=== PATIENT | female | born 1960 | race Caucasian/White ===

== ENCOUNTER → 2023-01-01 | Day surgery (SDC) | payer BC, OTHER ==
[~2023-01-01] MED LIST: Iopamidol 612 MG/ML 100 ML Bottle IV SCH; Lactated Ringers 1,000 ML IV SCH; Midazolam 1 MG/ML 2 ML SDV ONE; Propofol 200 MG/20 ML SDV ONE; Sodium Chloride 0.9% 10 ML Syringe FLUSH ONE; Sodium Chloride 0.9% 50 ML IV ONE; fentaNYL 50 MCG/ML SDV ONE
== END ==
LOC: JP.SDS 06:54
PROVIDERS: ATTEND Student in an Organized Health Care Education/Training Program
DX: K57.30 Diverticulosis of large intestine without perforation or abscess without bleeding (principal); E66.9 Obesity, unspecified; Z68.35 Body mass index [BMI] 35.0-35.9, adult; Z88.2 Allergy status to sulfonamides; Z79.899 Other long term (current) drug therapy
CPT/HCPCS: 36415; 45380; 45385; 71260; 74177; 80053; 82378; 85025; J2250; J2704; J3010; J3490; J7120; Q9967; 88305; 88341; 88342

== ENCOUNTER 2023-01-19 11:45 | Inpatient (IN) | payer OTHER ==
[2023-01-22] MEDS ORDERED: Bupivacaine 0.5% 50 ML MDV ONE (07:12)
[2023-01-22] MEDS ORDERED: Lidocaine 1% with EPINEPHrine 1:100,000 50 ML MDV ONE (07:13)
[2023-01-22] MEDS ORDERED: Bupivacaine 0.5%/EPINEPHrine 1:200,000 50 ML MDV ONE (07:13)
[2023-01-22] MEDS ORDERED: fentaNYL 250 MCG/5 ML SDV ONE ×3 (07:23→16:48)
[2023-01-22] MEDS ORDERED: Propofol 200 MG/20 ML SDV ONE (07:24)
[2023-01-22] MEDS ORDERED: Glycopyrrolate 0.2 MG/ML 5 ML MDV ONE (07:24)
[2023-01-22] MEDS ORDERED: Rocuronium 50 MG/5 ML Vial ONE ×4 (07:24→14:28)
[2023-01-22] MEDS ORDERED: Ondansetron 4 MG/2 ML SDV ONE (07:24)
[2023-01-22] MEDS ORDERED: Neostigmine Methylsulfate 1 MG/ML 5 ML Syringe ONE (07:24)
[2023-01-22] MEDS ORDERED: Succinylcholine 200 MG/10 ML MDV ONE (07:24)
[2023-01-22] MEDS ORDERED: Dexamethasone 4 MG/ML SDV ONE (07:24)
[2023-01-22] MEDS ORDERED: Scopolamine 1.5 MG Transdermal Patch TOP SCH (07:30)
[2023-01-22] MEDS ORDERED: Acetaminophen 500 MG Tab PO ONE (07:30)
[2023-01-22] MEDS ORDERED: Enoxaparin 40 MG/0.4 ML Syringe SUBCUT ONE (07:30)
[2023-01-22] MEDS: Lactated Ringers 1,000 ML IV SCH (08:19)
[2023-01-22] MEDS ORDERED: Ertapenem 1 GM in Sodium Chloride 0.9% 50 ML IV ONE (08:30)
[2023-01-22] MEDS ORDERED: Lactated Ringers 1,000 ML ONE ×2 (10:43→14:18)
[2023-01-22] MEDS ORDERED: ePHEDrine 50 MG/ML SDV ONE (10:43)
[2023-01-22] MEDS ORDERED: fentaNYL 100 MCG/2 ML SDV ONE ×2 (13:06→14:43)
[2023-01-22] MEDS ORDERED: Glucagon,Human Recombinant 1 MG Vial ONE (15:27)
[2023-01-22] MEDS ORDERED: Meropenem 500 MG SDV ONE (16:46)
[2023-01-22] MEDS ORDERED: diphenhydrAMINE 50 MG/ML SDV IVPUSH PRN (17:01)
[2023-01-22] MEDS ORDERED: diphenhydrAMINE 25 MG Cap PO PRN (17:01)
[2023-01-22] MEDS ORDERED: Naloxone 0.4 MG/ML SDV IVPUSH PRN (17:01)
[2023-01-22] MEDS ORDERED: Ondansetron 4 MG/2 ML SDV IVPUSH PRN (17:01)
[2023-01-22] MEDS: HYDROmorphone/Normal Saline 6 MG/30 ML PCA Vial IV PRN (17:10)
[2023-01-22] MEDS ORDERED: Naloxone 0.4 MG/ML SDV IV PRN (18:00)
[2023-01-22 18:37] LABS: ESTIMATED GFR 73 mL/min (>60)
[2023-01-22] MEDS: Ondansetron 4 MG/2 ML SDV IVPUSH PRN (19:16)
[2023-01-22] MEDS: Acetaminophen 1,000 MG in Premix Bag 1 BAG IV SCH (19:32)
[2023-01-22] MEDS ORDERED: Magnesium Sulfate/Water 2 GM in Premix Bag 1 BAG IV ONE (20:00)
[2023-01-22] MEDS ORDERED: Magnesium Sulfate/Water 50 ML ONE (21:03)
[2023-01-22] MEDS ORDERED: Promethazine 25 MG in Sodium Chloride 0.9% 50 ML IV PRN (21:18)
[2023-01-22] MEDS ORDERED: Promethazine 25 MG/ML SDV ONE (21:33)
[2023-01-23] MEDS: Lactated Ringers 1,000 ML IV SCH ×4 (00:20→19:49)
[2023-01-23] MEDS: Acetaminophen 1,000 MG in Premix Bag 1 BAG IV SCH ×3 (02:02→17:20)
[2023-01-23] MEDS ORDERED: Lactated Ringers 1,000 ML IV ONE (14:45)
[2023-01-23 17:23] LABS: ESTIMATED GFR 43 mL/min (>60)
[2023-01-23] MEDS ORDERED: Lactated Ringers 500 ML IV ONE (18:41)
[2023-01-24] MEDS: Lactated Ringers 1,000 ML IV SCH ×3 (03:52→18:56)
[2023-01-24] MEDS ORDERED: Lidocaine 1% with EPINEPHrine 1:100,000 50 ML MDV ONE (06:58)
[2023-01-24] MEDS ORDERED: Bupivacaine 0.5% 50 ML MDV ONE (06:58)
[2023-01-24] MEDS ORDERED: Sodium Phosphate 15 mMole/5 ML SDV IV ONE (07:18)
[2023-01-24] MEDS ORDERED: Sodium Phosphate 30 MMOLE in Sodium Chloride 0.9% 250 ML IV ONE (10:00)
[2023-01-24] MEDS: VERIFY SCOP PATCH TOP SCH (10:44)
[2023-01-24] MEDS: HYDROmorphone/Normal Saline 6 MG/30 ML PCA Vial IV PRN (14:05)
[2023-01-24] MEDS: Dextrose 5%-Lactated Ringers 1,000 ML IV SCH (21:47)
[2023-01-25] MEDS: Dextrose 5%-Lactated Ringers 1,000 ML IV SCH ×2 (05:52→16:23)
[2023-01-25] MEDS ORDERED: Bupivacaine 0.5% 50 ML MDV ONE (06:33)
[2023-01-25] MEDS ORDERED: Lidocaine 1% with EPINEPHrine 1:100,000 50 ML MDV ONE (06:33)
[2023-01-25] MEDS ORDERED: Sodium Phosphate 15 mMole/5 ML SDV IV ONE (07:30)
[2023-01-25] MEDS ORDERED: Propofol 200 MG/20 ML SDV ONE (07:33)
[2023-01-25] MEDS ORDERED: ceFAZolin 2 GM in Premix Bag 1 BAG IV ONE (08:00)
[2023-01-25] MEDS ORDERED: Ondansetron 4 MG/2 ML SDV ONE (08:05)
[2023-01-25] MEDS ORDERED: Meropenem 500 MG SDV ONE (08:17)
[2023-01-25] MEDS: VERIFY SCOP PATCH TOP SCH (09:28)
[2023-01-25] MEDS ORDERED: Sodium Phosphate 30 MMOLE in Sodium Chloride 0.9% 250 ML IV ONE (09:30)
[2023-01-25] MEDS: Acetaminophen 500 MG Tab PO SCH ×2 (13:47→22:37)
[2023-01-26] MEDS: Dextrose 5%-Lactated Ringers 1,000 ML IV SCH ×3 (02:25→22:37)
[2023-01-26] MEDS: Acetaminophen 500 MG Tab PO SCH ×3 (06:07→21:18)
[2023-01-26] MEDS: oxyCODONE 5 MG Tab PO PRN ×4 (08:56→21:19)
[2023-01-26] MEDS: VERIFY SCOP PATCH TOP SCH (09:34)
[2023-01-27] MEDS: oxyCODONE 5 MG Tab PO PRN ×4 (02:16→20:37)
[2023-01-27] MEDS: Acetaminophen 500 MG Tab PO SCH ×3 (05:11→21:42)
[2023-01-27 05:46] LABS: ESTIMATED GFR 107 mL/min (>60)
[2023-01-27] MEDS: Dextrose 5%-Lactated Ringers 1,000 ML IV SCH (08:05)
[2023-01-27] MEDS: Ondansetron 4 MG/2 ML SDV IVPUSH PRN (11:24)
[2023-01-27] MEDS: Potassium Phos in 0.9 % NaCl 15 MMOL in Premix Bag 1 BAG IV SCH ×4 (12:15→15:31)
[2023-01-27] MEDS: VERIFY SCOP PATCH TOP SCH (13:37)
[2023-01-27] MEDS ORDERED: HYDROmorphone 2 MG Tab PO PRN (22:10)
[2023-01-28] MEDS: Dextrose 5%-Lactated Ringers 1,000 ML IV SCH (01:47)
[2023-01-28] MEDS: Acetaminophen 500 MG Tab PO SCH ×3 (05:29→21:21)
[2023-01-28 05:31] LABS: ESTIMATED GFR 102 mL/min (>60)
[2023-01-28] MEDS ORDERED: traMADol 50 MG Tab PO PRN (09:01)
[2023-01-28] MEDS ORDERED: Ondansetron 4 MG Tab.DIS PO PRN (09:02)
[2023-01-28] MEDS: Ibuprofen 600 MG Tab PO PRN ×2 (09:19→15:43)
[2023-01-28] MEDS: Bisacodyl 5 MG Tab PO SCH ×2 (09:21→20:37)
[2023-01-28] MEDS: Docusate Sodium 100 MG Cap PO SCH ×2 (09:21→20:37)
[2023-01-28] MEDS: VERIFY SCOP PATCH TOP SCH (09:22)
[2023-01-28] MEDS: Potassium Chloride 20 MEQ Tab.ER PO SCH ×3 (09:25→16:48)
[2023-01-28] MEDS: Potassium Phos in 0.9 % NaCl 15 MMOL in Premix Bag 1 BAG IV SCH ×4 (09:32→13:37)
[2023-01-29] MEDS: Ibuprofen 600 MG Tab PO PRN ×2 (02:31→12:21)
[2023-01-29] MEDS: Acetaminophen 500 MG Tab PO SCH ×2 (04:25→05:54)
[2023-01-29 04:58] LABS: ESTIMATED GFR 107 mL/min (>60)
[2023-01-29] MEDS: Docusate Sodium 100 MG Cap PO SCH (09:43)
[2023-01-29] MEDS: Bisacodyl 5 MG Tab PO SCH (09:43)
[2023-01-29] MEDS: VERIFY SCOP PATCH TOP SCH (09:43)
== END 2023-01-29 12:39 | disposition home or self-care (01) | DRG 330 ==
LOC: JP.SDSSCHI 01-22 07:33 → JP.MS 01-22 18:44
PROVIDERS: ADMIT Student in an Organized Health Care Education/Training Program; ATTEND Student in an Organized Health Care Education/Training Program
PROC: 0DTG0ZZ Resection of Left Large Intestine, Open Approach (ICD-10-PCS; principal; 2023-01-25)
PROC: 0WQF0ZZ Repair Abdominal Wall, Open Approach (ICD-10-PCS; 2023-01-25)
PROC: 0FB24ZX Excision of Left Lobe Liver, Percutaneous Endoscopic Approach, Diagnostic (ICD-10-PCS; 2023-01-25)
DX: C18.7 Malignant neoplasm of sigmoid colon (principal); D62 Acute posthemorrhagic anemia; N17.9 Acute kidney failure, unspecified; E44.1 Mild protein-calorie malnutrition; E83.42 Hypomagnesemia; E87.6 Hypokalemia; E83.39 Other disorders of phosphorus metabolism; Z68.36 Body mass index [BMI] 36.0-36.9, adult; Z88.2 Allergy status to sulfonamides; Z98.51 Tubal ligation status; Z90.49 Acquired absence of other specified parts of digestive tract
CPT/HCPCS: 36415; 80048; 80053; 82607; 82728; 83615; 83735; 83880; 84100; 85018; 85025; 85027; 85610; 86850; 86900; 86901; 88307; 88309; 88331; A9270-GY; J0131; J0330; J0690; J1100; J1170; J1335; J1610; J1650; J2185; J2405; J2550; J2704; J2710; J3010; J3475; J3490; J7050; J7120; J7121; P9047; Q0162

== ENCOUNTER → 2023-02-21 | Day surgery (SDC) | payer OTHER ==
[~2023-02-21] MED LIST changes: +Acetaminophen 500 MG Tab PO ONE; +Bupivacaine 0.5% 50 ML MDV ONE; -Iopamidol 612 MG/ML 100 ML Bottle IV SCH; +Lidocaine 1% with EPINEPHrine 1:100,000 50 ML MDV ONE; +Ondansetron 4 MG/2 ML SDV ONE; -Sodium Chloride 0.9% 10 ML Syringe FLUSH ONE; -Sodium Chloride 0.9% 50 ML IV ONE; +ceFAZolin 2 GM in Premix Bag 1 BAG IV ONE; +fentaNYL 100 MCG/2 ML SDV ONE; -fentaNYL 50 MCG/ML SDV ONE
== END ==
LOC: JP.SDS 06:32
PROVIDERS: ATTEND Student in an Organized Health Care Education/Training Program
DX: C18.7 Malignant neoplasm of sigmoid colon (principal); E66.9 Obesity, unspecified; Z88.2 Allergy status to sulfonamides; Z79.899 Other long term (current) drug therapy; Z68.33 Body mass index [BMI] 33.0-33.9, adult
CPT/HCPCS: 77001; A9270-GY; C1788; J0690; J1642; J2250; J2405; J2704; J3010; J3490; J7120

== ENCOUNTER 2023-10-29 08:25 | Day surgery (SDC) | payer OTHER ==
[~2023-10-29 08:25] MED LIST changes: -Acetaminophen 500 MG Tab PO ONE; -Lactated Ringers 1,000 ML IV SCH; -Ondansetron 4 MG/2 ML SDV ONE; -ceFAZolin 2 GM in Premix Bag 1 BAG IV ONE; -fentaNYL 100 MCG/2 ML SDV ONE; +fentaNYL 50 MCG/ML SDV ONE
[2023-10-29] MEDS ORDERED: Lactated Ringers 1,000 ML IV SCH (08:45)
[2023-10-29] MEDS ORDERED: Acetaminophen 500 MG Tab PO ONE (08:45)
[2023-10-29] MEDS ORDERED: ceFAZolin 2 GM in Premix Bag 1 BAG IV ONE (09:00)
== END 2023-10-29 12:00 | disposition home or self-care (01) ==
LOC: JP.SDS 08:25
PROVIDERS: ATTEND Student in an Organized Health Care Education/Training Program
DX: Z51.11 Encounter for antineoplastic chemotherapy (principal); C19 Malignant neoplasm of rectosigmoid junction; C77.2 Secondary and unspecified malignant neoplasm of intra-abdominal lymph nodes; B37.0 Candidal stomatitis; G62.0 Drug-induced polyneuropathy; T45.1X5A Adverse effect of antineoplastic and immunosuppressive drugs, initial encounter; Z90.49 Acquired absence of other specified parts of digestive tract; Z88.2 Allergy status to sulfonamides
CPT/HCPCS: 36590; 74177; A9270; J0690; J2250; J2704; J3010; J3490; J7120; Q9967